=== PATIENT | female | born 2000 ===

== ENCOUNTER 2023-04-03 17:35 | Emergency (ER) | payer OTHER ==
[2023-04-03] MEDS ORDERED: Metoclopramide 10 MG/2 ML SDV IM ONE (18:13)
== END 2023-04-03 18:32 | disposition home or self-care (01) ==
LOC: DL.ED 17:35
DX: S06.0X0A Concussion without loss of consciousness, initial encounter (principal); Z79.899 Other long term (current) drug therapy; W22.8XXA Striking against or struck by other objects, initial encounter
CPT/HCPCS: 96372; 99283; J2765